=== PATIENT | female | born 1940 | race Caucasian/White ===

== ENCOUNTER 2017-08-23 08:19 | Outpatient (CLI) | payer OTHER | END 2017-08-23 08:26 | disposition home or self-care (01) | LOC: LAB 08:19 | DX: M81.0 Age-related osteoporosis without current pathological fracture (principal); K92.1 Melena; E03.8 Other specified hypothyroidism; D63.8 Anemia in other chronic diseases classified elsewhere; N30.90 Cystitis, unspecified without hematuria; E78.00 Pure hypercholesterolemia, unspecified ==

== ENCOUNTER 2018-01-16 08:57 | Outpatient (CLI) | payer OTHER | END 2018-01-16 09:02 | disposition home or self-care (01) | LOC: RAD 08:57 | DX: M54.2 Cervicalgia (principal); M54.5 Low back pain ==

== ENCOUNTER 2018-10-23 06:51 | Outpatient (CLI) | payer OTHER | END 2018-10-23 07:00 | disposition home or self-care (01) | LOC: LAB 06:51 | DX: E11.39 Type 2 diabetes mellitus with other diabetic ophthalmic complication (principal); I15.8 Other secondary hypertension; D68.32 Hemorrhagic disorder due to extrinsic circulating anticoagulants; D69.8 Other specified hemorrhagic conditions ==